=== PATIENT | female | born 1980 | race Hispanic/Latino ===

== ENCOUNTER 2017-06-26 13:21 | Emergency (ER) | payer MEDICARE ==
[~2017-06-26 13:21] MED LIST: ALBUTEROL IH; HYDR-4068 PO; TRAM50TA4 PO
== END 2017-06-26 14:51 | disposition home or self-care (01) ==
LOC: EDH 13:21
DX: M79.661 Pain in right lower leg (principal); M79.1 Myalgia; J45.909 Unspecified asthma, uncomplicated; G89.29 Other chronic pain; M54.5 Low back pain; Z88.1 Allergy status to other antibiotic agents; Z72.0 Tobacco use
CPT/HCPCS: 93971

== ENCOUNTER 2018-02-06 15:42 | Emergency (ER) | payer MEDICARE ==
[2018-02-06 17:11] LABS: BASOPHILS % (AUTO) 0.4 % (0.0-5.0); EOSINOPHILS % (AUTO) 1.6 % (0.0-8.0); HEMATOCRIT 34.3 % (36-48); LYMPHOCYTES % (AUTO) 29.1 % (21.0-51.0); MEAN CORPUSCULAR HEMOGLOBIN 33.3 pg (27.0-33.0); MEAN CORPUSCULAR HGB CONC 33.9 g/dL (32.0-36.0); MEAN CORPUSCULAR VOLUME 98.2 fL (79-99); MONOCYTES % (AUTO) 8.5 % (3.0-13.0); NEUTROPHILS % (AUTO) 60.4 % (40.0-77.0); PLATELET COUNT (AUTO) 114 K/uL (130-400); RED BLOOD CELL COUNT(AUTO) 3.49 MIL/uL (4.00-5.50); WHITE BLOOD COUNT (AUTO) 5.2 K/uL (4.8-10.8)
[2018-02-06 17:18] LABS: CREATININE 0.6 mg/dL (0.5-1.5); POTASSIUM 3.9 mmol/L (3.5-5.1)
== END 2018-02-06 17:40 | disposition home or self-care (01) ==
LOC: EDH 15:42
DX: R53.83 Other fatigue (principal); R11.0 Nausea; K08.89 Other specified disorders of teeth and supporting structures; J45.909 Unspecified asthma, uncomplicated; G89.29 Other chronic pain; Z87.891 Personal history of nicotine dependence; Z88.1 Allergy status to other antibiotic agents; Z88.5 Allergy status to narcotic agent
CPT/HCPCS: 36415; 80048; 85025

== ENCOUNTER 2018-03-04 21:11 | Emergency (ER) | payer MEDICARE ==
[2018-03-04] MEDS ORDERED: METOCLOPRAMIDE 10 MG TABLET ONE (21:48)
[2018-03-04] MEDS ORDERED: ACETAMINOPHEN EXTRA STRENGTH 500 MG TABLET ONE (21:48)
[2018-03-04 22:01] LABS: RAPID GROUP A STREP NEGATIVE (NEGATIVE)
== END 2018-03-04 22:52 | disposition home or self-care (01) ==
LOC: EDH 21:11
DX: J06.9 Acute upper respiratory infection, unspecified (principal); J45.909 Unspecified asthma, uncomplicated; Z98.51 Tubal ligation status; Z72.0 Tobacco use; Z88.1 Allergy status to other antibiotic agents; Z88.6 Allergy status to analgesic agent
CPT/HCPCS: 87804; 87880

== ENCOUNTER 2019-01-06 14:24 | Emergency (ER) | payer OTHER, MEDICARE ==
[2019-01-06] MEDS ORDERED: SODIUM CHLORIDE 0.9% 1000ML 1,000 ML IV ONE (15:40)
[2019-01-06] MEDS ORDERED: METOCLOPRAMIDE 10 MG/2 ML VIAL ONE (15:40)
[2019-01-06 15:44] LABS: BASOPHILS % (AUTO) 0.3 % (0.0-5.0); EOSINOPHILS % (AUTO) 0.3 % (0.0-8.0); LYMPHOCYTES % (AUTO) 20.8 % (21.0-51.0); MEAN CORPUSCULAR HEMOGLOBIN 33.8 pg (27.0-33.0); MEAN CORPUSCULAR HGB CONC 34.6 g/dL (32.0-36.0); MEAN CORPUSCULAR VOLUME 97.6 fL (79-99); MONOCYTES % (AUTO) 6.3 % (3.0-13.0); NEUTROPHILS % (AUTO) 72.3 % (40.0-77.0); PLATELET COUNT (AUTO) 140 K/uL (130-400); RED CELL DISTRIBUTION WIDTH 12.4 % (11.0-15.5); WHITE BLOOD COUNT (AUTO) 7.7 K/uL (4.8-10.8)
[2019-01-06 15:51] LABS: APPEARANCE,URINE Clear (CLEAR); BILIRUBIN,URINE Negative (NEGATIVE); COLOR,URINE Yellow (YELLOW); GLUCOSE, URINE (UA) Negative (NEGATIVE); KETONES,URINE Negative (NEGATIVE); LEUKOCYTE ESTERASE ,URINE Negative (NEGATIVE); NITRATE,URINE Negative (NEGATIVE); OCCULT BLOOD,URINE Negative (NEGATIVE); PROTEIN,URINE Negative (NEGATIVE); UROBILINOGEN,URINE 0.2 mg/dL (0.2-1.0)
[2019-01-06 15:54] LABS: HCG,QUAL RESULT NEGATIVE (NEGATIVE)
[2019-01-06 15:59] LABS: CREATININE 0.7 mg/dL (0.5-1.5); POTASSIUM 4.1 mmol/L (3.5-5.1)
[2019-01-06 16:00] LABS: AMPHET/METH SCREEN,URINE NEGATIVE (NEGATIVE); BARBITURATE SCREEN, URINE NEGATIVE (NEGATIVE); BENZODIAZEPINES SCREEN,URINE NEGATIVE (NEGATIVE); CANNABINOID SCREEN,URINE NEGATIVE (NEGATIVE); COCAINE SCREEN,URINE POSITIVE (NEGATIVE); OPIATE SCREEN,URINE NEGATIVE (NEGATIVE); PHENCYCLIDINE SCREEN,URINE NEGATIVE (NEGATIVE)
[2019-01-06 16:03] LABS: ALBUMIN 4.2 g/dL (3.5-5.0); BILIRUBIN,TOTAL 1.9 mg/dL (0.2-1.0); TOTAL PROTEIN, SERUM 7.8 g/dL (6.0-8.3)
== END 2019-01-06 16:30 | disposition left against medical advice (07) ==
LOC: EDH 14:24
DX: R10.30 Lower abdominal pain, unspecified (principal); R11.2 Nausea with vomiting, unspecified; G44.209 Tension-type headache, unspecified, not intractable; F14.10 Cocaine abuse, uncomplicated; J45.909 Unspecified asthma, uncomplicated; Z88.1 Allergy status to other antibiotic agents; Z88.5 Allergy status to narcotic agent; Z98.51 Tubal ligation status
CPT/HCPCS: 36415; 80053; 80305; 81003; 81025; 83690; 85025; 96374; 99284; J2765; J7030

== ENCOUNTER 2019-12-27 12:07 | Emergency (ER) | payer OTHER, MEDICARE ==
[2019-12-27] MEDS ORDERED: ONDANSETRON HCL 4 MG/2 ML VIAL ONE ×2 (12:37→12:50)
[2019-12-27] MEDS ORDERED: SODIUM CHLORIDE 0.9% 1000ML 1,000 ML IV ONE (12:51)
[2019-12-27] MEDS ORDERED: ACETAMINOPHEN EXTRA STRENGTH 500 MG TABLET ONE (12:51)
[2019-12-27 13:03] LABS: BASOPHILS % (AUTO) 0.4 % (0.0-5.0); EOSINOPHILS % (AUTO) 1.8 % (0.0-8.0); HEMATOCRIT 43.9 % (36-48); LYMPHOCYTES % (AUTO) 23.3 % (21.0-51.0); MEAN CORPUSCULAR HEMOGLOBIN 31.2 pg (27.0-33.0); MEAN CORPUSCULAR HGB CONC 34.4 g/dL (32.0-36.0); MEAN CORPUSCULAR VOLUME 90.7 fL (79-99); MONOCYTES % (AUTO) 7.2 % (3.0-13.0); NEUTROPHILS % (AUTO) 67.1 % (40.0-77.0); PLATELET COUNT (AUTO) 156 K/uL (130-400); RED BLOOD CELL COUNT(AUTO) 4.84 MIL/uL (4.00-5.50); RED CELL DISTRIBUTION WIDTH 12.2 % (11.0-15.5)
[2019-12-27 13:13] LABS: CREATININE 0.9 mg/dL (0.5-1.5); POTASSIUM 3.8 mmol/L (3.5-5.1)
[2019-12-27 13:17] LABS: ALBUMIN 4.2 g/dL (3.5-5.0); BILIRUBIN,TOTAL 1.7 mg/dL (0.2-1.0); TOTAL PROTEIN, SERUM 8.2 g/dL (6.0-8.3)
[2019-12-27 13:20] LABS: RAPID GROUP A STREP POSITIVE (NEGATIVE)
[2019-12-27 13:27] LABS: APPEARANCE,URINE Clear (CLEAR); BILIRUBIN,URINE Negative (NEGATIVE); COLOR,URINE Yellow (YELLOW); GLUCOSE, URINE (UA) Negative (NEGATIVE); KETONES,URINE Negative (NEGATIVE); LEUKOCYTE ESTERASE ,URINE Negative (NEGATIVE); NITRATE,URINE Negative (NEGATIVE); OCCULT BLOOD,URINE Negative (NEGATIVE); PROTEIN,URINE Negative (NEGATIVE); UROBILINOGEN,URINE 0.2 mg/dL (0.2-1.0)
[2019-12-27] MEDS ORDERED: CEFTRIAXONE SODIUM 1 GM ONE (13:37)
[2019-12-27] MEDS ORDERED: SODIUM CHLORIDE 0.9% 50 ML IV ONE (13:37)
== END 2019-12-27 14:26 | disposition home or self-care (01) ==
LOC: EDH 12:07
DX: J02.0 Streptococcal pharyngitis (principal); R11.2 Nausea with vomiting, unspecified; Z20.828 Contact with and (suspected) exposure to other viral communicable diseases; J45.909 Unspecified asthma, uncomplicated; M79.7 Fibromyalgia; G89.29 Other chronic pain; M54.9 Dorsalgia, unspecified; Z88.1 Allergy status to other antibiotic agents; Z88.6 Allergy status to analgesic agent; Z98.51 Tubal ligation status; Z87.891 Personal history of nicotine dependence
CPT/HCPCS: 36415; 80053; 81003; 85025; 87426; 87804 ×2; 87880; 96361; 96374; 96375; 99284; J0696; J2405 ×2; J7030; U0003

== ENCOUNTER 2020-02-13 10:07 | Emergency (ER) | payer OTHER, MEDICARE ==
[2020-02-13] MEDS ORDERED: KETOROLAC TROMETHAMINE 30MG/ML ONE (10:50)
[2020-02-13 11:17] LABS: BASOPHILS % (AUTO) 0.3 % (0.0-5.0); EOSINOPHILS % (AUTO) 0.6 % (0.0-8.0); HEMATOCRIT 43.7 % (36-48); LYMPHOCYTES % (AUTO) 10.2 % (21.0-51.0); MEAN CORPUSCULAR HEMOGLOBIN 31.3 pg (27.0-33.0); MEAN CORPUSCULAR HGB CONC 33.9 g/dL (32.0-36.0); MEAN CORPUSCULAR VOLUME 92.4 fL (79-99); MONOCYTES % (AUTO) 5.3 % (3.0-13.0); NEUTROPHILS % (AUTO) 83.3 % (40.0-77.0); PLATELET COUNT (AUTO) 144 K/uL (130-400); RED BLOOD CELL COUNT(AUTO) 4.73 MIL/uL (4.00-5.50); RED CELL DISTRIBUTION WIDTH 12.8 % (11.0-15.5); WHITE BLOOD COUNT (AUTO) 8.7 K/uL (4.8-10.8)
[2020-02-13 11:31] LABS: CREATININE 1.5 mg/dL (0.5-1.5); POTASSIUM 3.9 mmol/L (3.5-5.1)
[2020-02-13 11:35] LABS: ALBUMIN 4.4 g/dL (3.5-5.0); BILIRUBIN,TOTAL 1.3 mg/dL (0.2-1.0); TOTAL PROTEIN, SERUM 8.5 g/dL (6.0-8.3)
[2020-02-13] MEDS ORDERED: PENICILLIN G BENZATHINE LA 1.2 MILUNITS/2 ML SYG ONE (11:47)
== END 2020-02-13 12:14 | disposition home or self-care (01) ==
LOC: EDH 10:07
DX: J02.0 Streptococcal pharyngitis (principal); Z20.828 Contact with and (suspected) exposure to other viral communicable diseases; J45.909 Unspecified asthma, uncomplicated; G89.29 Other chronic pain; M79.7 Fibromyalgia; Z88.1 Allergy status to other antibiotic agents; Z88.6 Allergy status to analgesic agent; Z87.891 Personal history of nicotine dependence; Z98.890 Other specified postprocedural states
CPT/HCPCS: 36415; 80053; 85025; 87426; 87880; 96372; 96374; 99284; J0561; J1885; U0003

== ENCOUNTER 2021-07-07 15:29 | Emergency (ER) | payer OTHER, MEDICARE ==
[~2021-07-07] VITALS: Ht 154.9 cm; Wt 49.9 kg
[2021-07-07 16:04] LABS: BASOPHILS % (AUTO) 0.2 % (0.0-5.0); EOSINOPHILS % (AUTO) 0.2 % (0.0-8.0); HEMATOCRIT 46.3 % (36-48); LYMPHOCYTES % (AUTO) 15.1 % (21.0-51.0); MEAN CORPUSCULAR HEMOGLOBIN 31.5 pg (27.0-33.0); MEAN CORPUSCULAR HGB CONC 33.9 g/dL (32.0-36.0); MONOCYTES % (AUTO) 7.2 % (3.0-13.0); NEUTROPHILS % (AUTO) 76.8 % (40.0-77.0); PLATELET COUNT (AUTO) 178 K/uL (130-400); RED BLOOD CELL COUNT(AUTO) 4.98 MIL/uL (4.00-5.50); RED CELL DISTRIBUTION WIDTH 14.2 % (11.0-15.5); WHITE BLOOD COUNT (AUTO) 10.6 K/uL (4.8-10.8)
[2021-07-07 16:14] LABS: CARBON DIOXIDE 25 mmol/L (21-32); CHLORIDE 99 mmol/L (101-111); CREATININE 0.8 mg/dL (0.5-1.5); GLOMERULAR FILTR. RATE CALC 85 mL/min (>60); GLUCOSE,RANDOM 95 mg/dL (70-105); POTASSIUM 3.6 mmol/L (3.5-5.1); SODIUM SERUM 139 mmol/L (136-145); UREA NITROGEN, BLOOD 9 mg/dL (7-18)
[2021-07-07 16:19] LABS: ALANINE AMINOTRANSFERASE 21 U/L (12-78); ALBUMIN 4.9 g/dL (3.5-5.0); ASPARTATE AMINOTRANSFERASE 20 U/L (10-37); BILIRUBIN,TOTAL 2.1 mg/dL (0.2-1.0); LIPASE < 50 U/L (114-286); TOTAL PROTEIN, SERUM 8.9 g/dL (6.0-8.3)
[2021-07-07 17:08] LABS: BILIRUBIN,URINE Negative (NEGATIVE); COLOR,URINE Dark Yellow (YELLOW); GLUCOSE, URINE (UA) Negative (NEGATIVE); KETONES,URINE >=160 mg/dL (NEGATIVE); LEUKOCYTE ESTERASE ,URINE Small (NEGATIVE); NITRATE,URINE Positive (NEGATIVE); OCCULT BLOOD,URINE Trace (NEGATIVE); PH,URINE 6.5 (5.0-8.0); PROTEIN,URINE POS 2+ mg/dL (NEGATIVE)
[2021-07-07 17:11] LABS: APPEARANCE,URINE CLOUDY (CLEAR)
[2021-07-07 17:13] LABS: HCG,QUAL RESULT NEGATIVE (NEGATIVE)
[2021-07-07 17:14] LABS: AMPHET/METH SCREEN,URINE POSITIVE (NEGATIVE); BARBITURATE SCREEN, URINE NEGATIVE (NEGATIVE); BENZODIAZEPINES SCREEN,URINE NEGATIVE (NEGATIVE); CANNABINOID SCREEN,URINE POSITIVE (NEGATIVE); COCAINE SCREEN,URINE NEGATIVE (NEGATIVE); OPIATE SCREEN,URINE NEGATIVE (NEGATIVE); PHENCYCLIDINE SCREEN,URINE NEGATIVE (NEGATIVE)
[2021-07-07 17:30] LABS: BACTERIA,URINE Moderate /HPF (None Seen); SQUAMOUS EPITHELIAL CELL,UR Moderate /HPF (0-2)
[2021-07-07] MEDS ORDERED: LACTATED RINGERS 1000ML 1,000 ML IV ONE (19:30)
[2021-07-07] MEDS ORDERED: LORAZEPAM 2 MG/ML 1 ML VIAL IVP ONE (19:30)
[2021-07-07] MEDS ORDERED: ONDANSETRON 4MG INJ IVP ONE (21:30)
[2021-07-07] MEDS ORDERED: IBUPROFEN 600 MG TABLET PO ONE (21:30)
[2021-07-07] MEDS ORDERED: CLON0.1T PO (22:20)
[2021-07-07] MEDS ORDERED: ONDA22I PO (22:20)
[2021-07-07 22:26] VITALS: BP 135/85
== END 2021-07-07 22:35 | disposition home or self-care (01) ==
LOC: EDH 15:29
DX: F11.13 Opioid abuse with withdrawal (principal); F19.10 Other psychoactive substance abuse, uncomplicated; R11.2 Nausea with vomiting, unspecified; R19.7 Diarrhea, unspecified; J45.909 Unspecified asthma, uncomplicated; Z79.1 Long term (current) use of non-steroidal anti-inflammatories (NSAID); Z88.1 Allergy status to other antibiotic agents; Z88.2 Allergy status to sulfonamides; Z88.5 Allergy status to narcotic agent
CPT/HCPCS: 36415; 80053; 80305; 81001; 81025; 83690; 85025; 87077; 87088; 87186; 96361; 96374; 96375; 99284; J2060; J2405; J7120

== ENCOUNTER 2022-01-16 07:31 | Emergency (ER) | payer OTHER, MEDICARE ==
[~2022-01-16 07:31] MED LIST changes: +CLON0.1T PO; +ONDA22I PO
[2022-01-16 07:53] LABS: BASOPHILS % (AUTO) 0.2 % (0.0-5.0); EOSINOPHILS % (AUTO) 0.5 % (0.0-8.0); HEMATOCRIT 42.7 % (36-48); MEAN CORPUSCULAR HEMOGLOBIN 31.5 pg (27.0-33.0); MEAN CORPUSCULAR HGB CONC 34.4 g/dL (32.0-36.0); MEAN CORPUSCULAR VOLUME 91.6 fL (79-99); MONOCYTES % (AUTO) 2.2 % (3.0-13.0); NEUTROPHILS % (AUTO) 90.5 % (40.0-77.0); PLATELET COUNT (AUTO) 143 K/uL (130-400); RED BLOOD CELL COUNT(AUTO) 4.66 MIL/uL (4.00-5.50); RED CELL DISTRIBUTION WIDTH 13.2 % (11.0-15.5); WHITE BLOOD COUNT (AUTO) 10.7 K/uL (4.8-10.8)
[2022-01-16 08:07] LABS: CREATININE 0.7 mg/dL (0.5-1.5); POTASSIUM 3.3 mmol/L (3.5-5.1)
[2022-01-16 08:11] LABS: ALBUMIN 4.4 g/dL (3.5-5.0)
[2022-01-16] MEDS ORDERED: POTASSIUM BICARB/CIT AC 25 MEQ TABLET.EFF PO STA (08:23)
[2022-01-16] MEDS ORDERED: 0.9%NACL 1000ML 1,000 ML IV ONE (08:30)
[2022-01-16 08:34] LABS: AMPHET/METH SCREEN,URINE NEGATIVE (NEGATIVE); BARBITURATE SCREEN, URINE NEGATIVE (NEGATIVE); BENZODIAZEPINES SCREEN,URINE NEGATIVE (NEGATIVE); CANNABINOID SCREEN,URINE POSITIVE (NEGATIVE); COCAINE SCREEN,URINE NEGATIVE (NEGATIVE); OPIATE SCREEN,URINE NEGATIVE (NEGATIVE); PHENCYCLIDINE SCREEN,URINE NEGATIVE (NEGATIVE)
[2022-01-16 08:45] LABS: APPEARANCE,URINE CLEAR (CLEAR); BILIRUBIN,URINE NEGATIVE (NEGATIVE); COLOR,URINE YELLOW (YELLOW); GLUCOSE, URINE (UA) NEGATIVE (NEGATIVE); KETONES,URINE 60 mg/dL (NEGATIVE); LEUKOCYTE ESTERASE ,URINE 25 Leu/uL (NEGATIVE); NITRATE,URINE NEGATIVE (NEGATIVE); OCCULT BLOOD,URINE NEGATIVE (NEGATIVE); PROTEIN,URINE 10 mg/dL (NEGATIVE); UROBILINOGEN,URINE 0.2 mg/dL (0.2-1.0)
[2022-01-16 08:46] LABS: HCG,QUALITATIVE URINE NEGATIVE (NEGATIVE)
[2022-01-16 08:47] LABS: MUCUS,URINE RARE LPF (None Seen); SQUAMOUS EPITHELIAL CELL,UR RARE /HPF (0-2)
[2022-01-16] MEDS ORDERED: KETOROLAC 15MG/ML VIAL (15MG/ML) IV ONE (09:00)
[2022-01-16 09:11] VITALS: BP 107/50
[2022-01-16] MEDS ORDERED: CEPH500B PO (09:23)
== END 2022-01-16 09:31 | disposition home or self-care (01) ==
LOC: EDH 07:31
DX: N39.0 Urinary tract infection, site not specified (principal); F12.10 Cannabis abuse, uncomplicated; R41.0 Disorientation, unspecified; E87.6 Hypokalemia; Z98.890 Other specified postprocedural states; Z88.1 Allergy status to other antibiotic agents; Z88.2 Allergy status to sulfonamides; Z88.5 Allergy status to narcotic agent
CPT/HCPCS: 80053; 80305; 83690; 85025; 81001; 81025; 36415; 96374; 99283; 96361; J7030; J1885

== ENCOUNTER 2022-02-12 05:09 | Emergency (ER) | payer OTHER, MEDICARE ==
[~2022-02-12] VITALS: Ht 154.9 cm; Wt 42.8 kg
[~2022-02-12 05:09] MED LIST changes: +CEPH500B PO
[2022-02-12] MEDS ORDERED: ONDANSETRON ODT 4MG TAB ONE (05:40)
[2022-02-12] MEDS ORDERED: 0.9%NACL 1000ML 1,000 ML IV ONE (05:50)
[2022-02-12 06:06] LABS: BASOPHILS % (AUTO) 0.2 % (0.0-5.0); EOSINOPHILS % (AUTO) 0.1 % (0.0-8.0); LYMPHOCYTES % (AUTO) 11.8 % (21.0-51.0); MEAN CORPUSCULAR HEMOGLOBIN 31.8 pg (27.0-33.0); MEAN CORPUSCULAR HGB CONC 33.9 g/dL (32.0-36.0); MEAN CORPUSCULAR VOLUME 93.8 fL (79-99); NEUTROPHILS % (AUTO) 82.5 % (40.0-77.0); PLATELET COUNT (AUTO) 153 K/uL (130-400); RED BLOOD CELL COUNT(AUTO) 4.37 MIL/uL (4.00-5.50); RED CELL DISTRIBUTION WIDTH 13.6 % (11.0-15.5)
[2022-02-12 06:06] LABS: AMPHET/METH SCREEN,URINE NEGATIVE (NEGATIVE); BARBITURATE SCREEN, URINE NEGATIVE (NEGATIVE); BENZODIAZEPINES SCREEN,URINE NEGATIVE (NEGATIVE); CANNABINOID SCREEN,URINE POSITIVE (NEGATIVE); COCAINE SCREEN,URINE POSITIVE (NEGATIVE); OPIATE SCREEN,URINE NEGATIVE (NEGATIVE); PHENCYCLIDINE SCREEN,URINE NEGATIVE (NEGATIVE)
[2022-02-12 06:15] LABS: CARBON DIOXIDE 25 mmol/L (21-32); CHLORIDE 103 mmol/L (101-111); CREATININE 0.7 mg/dL (0.5-1.5); GLOMERULAR FILTR. RATE CALC 99 mL/min (>60); GLUCOSE,RANDOM 118 mg/dL (70-105); POTASSIUM 3.8 mmol/L (3.5-5.1); SODIUM SERUM 141 mmol/L (136-145); UREA NITROGEN, BLOOD 10 mg/dL (7-18)
[2022-02-12 06:20] LABS: ALANINE AMINOTRANSFERASE 23 U/L (12-78); ALBUMIN 4.6 g/dL (3.5-5.0); ALCOHOL, BLOOD < 3 mg/dL (0-10); ASPARTATE AMINOTRANSFERASE 24 U/L (10-37); TOTAL PROTEIN, SERUM 8.4 g/dL (6.0-8.3)
[2022-02-12 06:21] LABS: ACETAMINOPHEN < 1 mcg/mL (10-30); SALICYLATE < 2.8 mg/dL (2.8-20.0)
[2022-02-12] MEDS: CARBIDOPA-LEVODOPA 25-100 TAB PO SCH ×2 (06:24→08:23)
[2022-02-12] MEDS ORDERED: PRAM0.5T3 PO (07:24)
[2022-02-12 07:30] VITALS: BP 123/84
[2022-02-12 07:50] LABS: APPEARANCE,URINE CLEAR (CLEAR); BILIRUBIN,URINE NEGATIVE (NEGATIVE); COLOR,URINE LIGHT-YELLOW (YELLOW); GLUCOSE, URINE (UA) NEGATIVE (NEGATIVE); KETONES,URINE NEGATIVE (NEGATIVE); LEUKOCYTE ESTERASE ,URINE NEGATIVE Leu/uL (NEGATIVE); NITRATE,URINE NEGATIVE (NEGATIVE); OCCULT BLOOD,URINE MODERATE (NEGATIVE); PH,URINE 7.5 (5.0-8.0); PROTEIN,URINE NEGATIVE (NEGATIVE); UROBILINOGEN,URINE 0.2 mg/dL (0.2-1.0)
[2022-02-12 08:18] LABS: BACTERIA,URINE RARE /HPF (None Seen); MUCUS,URINE RARE LPF (None Seen); OTHER CASTS, URINE 2 /LPF (None Seen); SQUAMOUS EPITHELIAL CELL,UR MANY /HPF (0-2)
== END 2022-02-12 11:05 | disposition home or self-care (01) ==
LOC: EDH 05:09
DX: F12.10 Cannabis abuse, uncomplicated (principal); F14.10 Cocaine abuse, uncomplicated; G25.81 Restless legs syndrome; R11.2 Nausea with vomiting, unspecified; Z88.6 Allergy status to analgesic agent; Z88.5 Allergy status to narcotic agent; Z88.1 Allergy status to other antibiotic agents; Z88.8 Allergy status to other drugs, medicaments and biological substances; Z98.890 Other specified postprocedural states; Z79.899 Other long term (current) drug therapy
CPT/HCPCS: 82550; 80053; 80305; 85025; 81001; 36415; 99283; 96360; G0481; J7030; 96361; 96374

== ENCOUNTER 2022-04-18 08:57 | Emergency (ER) | payer OTHER, MEDICARE ==
[~2022-04-18] VITALS: Ht 154.9 cm; Wt 44.5 kg
[~2022-04-18 08:57] MED LIST changes: +PRAM0.5T3 PO
[2022-04-18 09:26] LABS: BASOPHILS % (AUTO) 0.3 % (0.0-5.0); EOSINOPHILS % (AUTO) 2.1 % (0.0-8.0); HEMATOCRIT 37.7 % (36-48); LYMPHOCYTES % (AUTO) 38.1 % (21.0-51.0); MEAN CORPUSCULAR HEMOGLOBIN 31.3 pg (27.0-33.0); MEAN CORPUSCULAR HGB CONC 33.4 g/dL (32.0-36.0); MEAN CORPUSCULAR VOLUME 93.8 fL (79-99); MONOCYTES % (AUTO) 8.6 % (3.0-13.0); NEUTROPHILS % (AUTO) 50.7 % (40.0-77.0); PLATELET COUNT (AUTO) 119 K/uL (130-400); RED BLOOD CELL COUNT(AUTO) 4.02 MIL/uL (4.00-5.50); RED CELL DISTRIBUTION WIDTH 13.2 % (11.0-15.5); WHITE BLOOD COUNT (AUTO) 6.2 K/uL (4.8-10.8)
[2022-04-18] MEDS ORDERED: FAMOTIDINE 20MG VIAL IV ONE (09:30)
[2022-04-18] MEDS ORDERED: MORPHINE 4 MG SYG IVP ONE (09:30)
[2022-04-18] MEDS ORDERED: 0.9%NACL 1000ML 1,000 ML IV ONE (09:30)
[2022-04-18] MEDS ORDERED: ONDANSETRON 4MG INJ IVP ONE (09:30)
[2022-04-18] MEDS ORDERED: KETOROLAC 15MG/ML VIAL (15MG/ML) IV ONE (09:30)
[2022-04-18 09:34] LABS: CREATININE 0.6 mg/dL (0.5-1.5); POTASSIUM 3.6 mmol/L (3.5-5.1)
[2022-04-18 09:39] LABS: ALBUMIN 3.9 g/dL (3.5-5.0); TOTAL PROTEIN, SERUM 6.9 g/dL (6.0-8.3)
[2022-04-18 09:57] LABS: APPEARANCE,URINE CLOUDY (CLEAR); BILIRUBIN,URINE NEGATIVE (NEGATIVE); COLOR,URINE LIGHT-YELLOW (YELLOW); GLUCOSE, URINE (UA) NEGATIVE (NEGATIVE); KETONES,URINE NEGATIVE (NEGATIVE); LEUKOCYTE ESTERASE ,URINE 500 Leu/uL (NEGATIVE); NITRATE,URINE NEGATIVE (NEGATIVE); OCCULT BLOOD,URINE NEGATIVE (NEGATIVE); PROTEIN,URINE NEGATIVE (NEGATIVE)
[2022-04-18 10:16] LABS: BACTERIA,URINE FEW /HPF (None Seen); MUCUS,URINE RARE LPF (None Seen); SQUAMOUS EPITHELIAL CELL,UR MANY /HPF (0-2); WBC,URINE 26-50 /HPF (0-1)
[2022-04-18 10:21] LABS: HCG,QUALITATIVE URINE NEGATIVE (NEGATIVE)
[2022-04-18 10:57] VITALS: BP 120/75
[2022-04-18] MEDS ORDERED: POLY17PO4 PO (11:42)
[2022-04-18] MEDS ORDERED: CEPH500B PO (11:42)
[2022-04-18] MEDS ORDERED: NAPR-1023 PO (11:42)
== END 2022-04-18 11:46 | disposition home or self-care (01) ==
LOC: EDH 08:57
DX: N39.0 Urinary tract infection, site not specified (principal); K59.00 Constipation, unspecified; J45.909 Unspecified asthma, uncomplicated; E86.0 Dehydration; Z79.1 Long term (current) use of non-steroidal anti-inflammatories (NSAID); Z88.1 Allergy status to other antibiotic agents; Z88.2 Allergy status to sulfonamides; Z88.5 Allergy status to narcotic agent
CPT/HCPCS: 99285; 80053; 85025; 87088; 81001; 81025; 36415; 74176; 96374; 96361; 96375; J3490; J7030; J2405; J2270; J1885

== ENCOUNTER 2022-09-12 13:42 | Emergency (ER) | payer OTHER, MEDICARE ==
[~2022-09-12] VITALS: Ht 154.9 cm; Wt 45.4 kg
[~2022-09-12 13:42] MED LIST changes: +NAPR-1023 PO; +POLY17PO4 PO
[2022-09-12 13:43] VITALS: BP 114/71; PULSE 70; RESP 20
[2022-09-12 14:49] LABS: HEMATOCRIT 40.5 % (36-48); MEAN CORPUSCULAR HEMOGLOBIN 31.2 pg (27.0-33.0); MEAN CORPUSCULAR HGB CONC 33.3 g/dL (32.0-36.0); MEAN CORPUSCULAR VOLUME 93.5 fL (79-99); PLATELET COUNT (AUTO) 144 K/uL (130-400); RED BLOOD CELL COUNT(AUTO) 4.33 MIL/uL (4.00-5.50); RED CELL DISTRIBUTION WIDTH 13.2 % (11.0-15.5); WHITE BLOOD COUNT (AUTO) 8.9 K/uL (4.8-10.8)
[2022-09-12 14:51] LABS: APPEARANCE,URINE CLOUDY (CLEAR); BILIRUBIN,URINE NEGATIVE (NEGATIVE); COLOR,URINE LIGHT-YELLOW (YELLOW); GLUCOSE, URINE (UA) NEGATIVE (NEGATIVE); KETONES,URINE NEGATIVE (NEGATIVE); LEUKOCYTE ESTERASE ,URINE 75 Leu/uL (NEGATIVE); NITRATE,URINE NEGATIVE (NEGATIVE); OCCULT BLOOD,URINE LARGE (NEGATIVE); PROTEIN,URINE 10 mg/dL (NEGATIVE); UROBILINOGEN,URINE 0.2 mg/dL (0.2-1.0)
[2022-09-12] MEDS ORDERED: 0.9%NACL 1000ML 1,000 ML IV ONE (15:00)
[2022-09-12] MEDS ORDERED: ONDANSETRON 4MG INJ IVP ONE (15:00)
[2022-09-12] MEDS ORDERED: KETOROLAC 30MG VIAL (30MG/ML) IVP ONE (15:00)
[2022-09-12 15:03] LABS: CREATININE 0.7 mg/dL (0.5-1.5); POTASSIUM 3.9 mmol/L (3.5-5.1)
[2022-09-12 15:07] LABS: HCG,QUALITATIVE URINE NEGATIVE (NEGATIVE)
[2022-09-12 15:07] LABS: ALBUMIN 4.2 g/dL (3.5-5.0); TOTAL PROTEIN, SERUM 7.9 g/dL (6.0-8.3)
[2022-09-12 15:25] LABS: ADD UA MICROSCOPIC YES
[2022-09-12 15:28] LABS: BACTERIA,URINE MOD /HPF (None Seen); MUCUS,URINE FEW LPF (None Seen); SQUAMOUS EPITHELIAL CELL,UR MANY /HPF (0-2)
[2022-09-12 15:46] LABS: LYMPHOCYTES % (MANUAL) 25 % (22-44); MONOCYTES % (MANUAL) 2 % (2-9); SEGMENTED NEUTROPHILS % 73 % (40-70); TOTAL CELLS COUNTED 100
[2022-09-12 15:48] LABS: MAN.DIFF COMMENT-IMPRESSION MANUAL DIFFERENTIAL
[2022-09-12 15:49] LABS: PLATELET MORPHOLOGY COMMENT ADEQUATE
[2022-09-12] MEDS ORDERED: ONDA4TAB10 PO (16:23)
[2022-09-12] MEDS ORDERED: CEFD300C3 PO (16:23)
[2022-09-12] MEDS ORDERED: IBUP-2070 PO (16:23)
[2022-09-12] MEDS ORDERED: CEFTRIAXONE 1G VIAL IVPB ONE (16:30)
== END 2022-09-12 16:58 | disposition home or self-care (01) ==
LOC: EDH 13:42
DX: N39.0 Urinary tract infection, site not specified (principal); N93.8 Other specified abnormal uterine and vaginal bleeding; R10.2 Pelvic and perineal pain; J45.909 Unspecified asthma, uncomplicated; Z88.1 Allergy status to other antibiotic agents; Z88.2 Allergy status to sulfonamides; Z88.5 Allergy status to narcotic agent
CPT/HCPCS: 99285; 80053; 84702; 85025; 87088; 81001; 81025; 36415; 76830; 96374; 96361; 96375; J7030; J0696; J2405; J1885

== ENCOUNTER 2022-10-11 01:35 | Emergency (ER) | payer OTHER, MEDICARE ==
[~2022-10-11] VITALS: Ht 154.9 cm; Wt 46.7 kg
[~2022-10-11 01:35] MED LIST changes: +CEFD300C3 PO; +IBUP-2070 PO; +ONDA4TAB10 PO
[2022-10-11 01:36] VITALS: BP 137/79; PULSE 69; RESP 20
[2022-10-11] MEDS ORDERED: AMOX500C2 PO (02:06)
[2022-10-11] MEDS ORDERED: ONDA-104 PO (02:06)
== END 2022-10-11 02:46 | disposition left against medical advice (07) ==
LOC: EDH 01:35
DX: K08.89 Other specified disorders of teeth and supporting structures (principal); Z88.1 Allergy status to other antibiotic agents; Z88.2 Allergy status to sulfonamides; Z88.5 Allergy status to narcotic agent

== ENCOUNTER 2023-04-08 10:50 | Emergency (ER) | payer OTHER, MEDICARE ==
[~2023-04-08] VITALS: Ht 154.9 cm; Wt 42.6 kg
[~2023-04-08 10:50] MED LIST changes: +AMOX500C2 PO; +ONDA-104 PO
[2023-04-08] MEDS ORDERED: OMEP40CA21 PO (12:40)
[2023-04-08] MEDS ORDERED: IBUP-2077 PO (12:40)
[2023-04-08] MEDS ORDERED: METH4TAB3 PO (12:40)
[2023-04-08] MEDS: DEXAMETHASONE SOD PHOSPHATE 4 MG/ML 1ML VIAL IM ONE (12:53)
[2023-04-08] MEDS: KETOROLAC 60 MG VIAL (30MG/ML) IM ONE (12:54)
[2023-04-08 13:47] VITALS: BP 135/80; PULSE 74; RESP 18; O2SAT 97
== END 2023-04-08 13:48 | disposition home or self-care (01) ==
LOC: EDH 10:50
DX: E04.9 Nontoxic goiter, unspecified (principal); J45.909 Unspecified asthma, uncomplicated; Z79.899 Other long term (current) drug therapy; Z98.890 Other specified postprocedural states; Z90.710 Acquired absence of both cervix and uterus; Z88.1 Allergy status to other antibiotic agents; Z88.2 Allergy status to sulfonamides; Z88.5 Allergy status to narcotic agent; Z88.8 Allergy status to other drugs, medicaments and biological substances
CPT/HCPCS: 99284; 96372 ×2; J1100; J1885

== ENCOUNTER 2023-04-09 17:12 | Emergency (ER) | payer OTHER, MEDICARE ==
[~2023-04-09] VITALS: Ht 154.9 cm; Wt 43.5 kg
[~2023-04-09 17:12] MED LIST changes: +IBUP-2077 PO; +METH4TAB3 PO; +OMEP40CA21 PO
[2023-04-09 17:26] VITALS: BP 123/89; PULSE 63; RESP 16
[2023-04-09] MEDS ORDERED: IBUPROFEN 600 MG TABLET PO ONE (19:00)
[2023-04-09] MEDS ORDERED: LIDOCAINE HCL 1% 20 ML VIAL INJ SCH (19:00)
[2023-04-09] MEDS ORDERED: NEOMY SULF/BACITRA/POLYMYXIN B 1 EACH PACKET TP ONE (19:00)
[2023-04-09] MEDS ORDERED: TETANUS/DIPHTHERIA TOXOID [ADULT] 0.5 ML VIAL IM ONE (19:00)
== END 2023-04-10 02:05 | disposition left against medical advice (07) ==
LOC: EDH 17:12
DX: S01.01XA Laceration without foreign body of scalp, initial encounter (principal); J45.909 Unspecified asthma, uncomplicated; G89.29 Other chronic pain; Z88.2 Allergy status to sulfonamides; Z88.5 Allergy status to narcotic agent; Z88.8 Allergy status to other drugs, medicaments and biological substances; Z90.710 Acquired absence of both cervix and uterus; W01.0XXA Fall on same level from slipping, tripping and stumbling without subsequent striking against object, initial encounter; Y93.89 Activity, other specified; Y92.89 Other specified places as the place of occurrence of the external cause; Y99.8 Other external cause status

== ENCOUNTER 2023-06-15 15:54 | Emergency (ER) | payer OTHER, MEDICARE ==
[~2023-06-15] VITALS: Ht 154.9 cm; Wt 42.2 kg
[2023-06-15 18:30] VITALS: TEMP 97.9
[2023-06-15] MEDS: IBUPROFEN 800 MG TAB PO ONE (18:30)
[2023-06-15] MEDS ORDERED: IBUP-2070 PO (19:40)
[2023-06-15 19:45] VITALS: BP 121/68; PULSE 72; RESP 18; O2SAT 99
== END 2023-06-15 19:50 | disposition home or self-care (01) ==
LOC: EDH 15:54
DX: S60.221A Contusion of right hand, initial encounter (principal); S60.511A Abrasion of right hand, initial encounter; J45.909 Unspecified asthma, uncomplicated; Z79.899 Other long term (current) drug therapy; Z88.1 Allergy status to other antibiotic agents; Z88.2 Allergy status to sulfonamides; Z88.5 Allergy status to narcotic agent; Z90.710 Acquired absence of both cervix and uterus; W18.39XA Other fall on same level, initial encounter; Y93.89 Activity, other specified; Y92.89 Other specified places as the place of occurrence of the external cause; Y99.8 Other external cause status
CPT/HCPCS: 73130

== ENCOUNTER → 2023-07-13 | Outpatient (CLI) | payer OTHER | END | disposition home or self-care (01) | LOC: OIH 11:42 | PROVIDERS: ATTEND Family Medicine | DX: Z13.6 Encounter for screening for cardiovascular disorders (principal) | CPT/HCPCS: 75571 ==

== ENCOUNTER → 2023-07-18 | Outpatient (CLI) | payer OTHER, MEDICARE ==
[~2023-07-18] MED LIST changes: +GADOTERATE MEGLUMINE 5 MMOL/10 ML VIAL IV ONE
== END | disposition home or self-care (01) ==
LOC: RAH 13:03
PROVIDERS: ATTEND Optometrist Corneal and Contact Management
DX: H53.133 Sudden visual loss, bilateral (principal)
CPT/HCPCS: 70553; A9575

== ENCOUNTER 2023-11-27 06:11 | Emergency (ER) | payer OTHER, MEDICARE ==
[~2023-11-27 06:11] MED LIST changes: -GADOTERATE MEGLUMINE 5 MMOL/10 ML VIAL IV ONE; +ONDA-243 PO; -ONDA4TAB10 PO
[2023-11-27] MEDS: 0.9%NACL 1000ML 1,000 ML IV ONE (06:33)
[2023-11-27 06:37] LABS: BASOPHILS # (AUTO) 0.02 K/uL (0.00-0.20); BASOPHILS % (AUTO) 0.3 % (0.0-5.0); EOSINOPHILS # (AUTO) 0.11 K/uL (0.00-0.70); EOSINOPHILS % (AUTO) 1.8 % (0.0-8.0); HEMATOCRIT 34.2 % (36-48); IMMATURE GRANULOCYTE ABSOLUTE 0.02 K/uL (0-1); LYMPHOCYTES # (AUTO) 1.5 K/uL (1.0-4.8); LYMPHOCYTES % (AUTO) 23.9 % (21.0-51.0); MEAN CORPUSCULAR HEMOGLOBIN 32.8 pg (27.0-33.0); MEAN CORPUSCULAR HGB CONC 34.2 g/dL (32.0-36.0); MEAN CORPUSCULAR VOLUME 95.8 fL (79-99); MONOCYTES # (AUTO) 0.5 K/uL (0.1-1.0); MONOCYTES % (AUTO) 8.1 % (3.0-13.0); NEUTROPHILS # (AUTO) 4.1 K/uL (1.8-7.7); NEUTROPHILS % (AUTO) 65.6 % (40.0-77.0); PLATELET COUNT (AUTO) 118 K/uL (130-400); RED BLOOD CELL COUNT(AUTO) 3.57 MIL/uL (4.00-5.50); RED CELL DISTRIBUTION WIDTH 12.7 % (11.0-15.5); WHITE BLOOD COUNT (AUTO) 6.2 K/uL (4.8-10.8)
[2023-11-27 06:58] LABS: CARBON DIOXIDE 27 mmol/L (21-32); CHLORIDE 100 mmol/L (101-111); CREATINE KINASE, TOTAL 67 U/L (21-232); CREATININE 0.7 mg/dL (0.5-1.0); GLOMERULAR FILTR. RATE CALC 111 mL/min (>90); GLUCOSE,RANDOM 113 mg/dL (70-105); POTASSIUM 3.1 mmol/L (3.5-5.1); SODIUM SERUM 135 mmol/L (136-145); UREA NITROGEN, BLOOD 16 mg/dL (7-18)
[2023-11-27 07:19] LABS: ACETAMINOPHEN 3 mcg/mL (10-30)
[2023-11-27 07:20] LABS: ALCOHOL, BLOOD < 3 mg/dL (0-10); SALICYLATE < 2.8 mg/dL (2.8-20.0)
[2023-11-27 08:00] LABS: APPEARANCE,URINE CLEAR (CLEAR); BILIRUBIN,URINE NEGATIVE (NEGATIVE); COLOR,URINE COLORLESS (YELLOW); GLUCOSE, URINE (UA) NEGATIVE (NEGATIVE); KETONES,URINE NEGATIVE (NEGATIVE); LEUKOCYTE ESTERASE ,URINE NEGATIVE Leu/uL (NEGATIVE); NITRATE,URINE NEGATIVE (NEGATIVE); OCCULT BLOOD,URINE NEGATIVE (NEGATIVE); PH,URINE 6.5 (5.0-8.0); PROTEIN,URINE NEGATIVE (NEGATIVE); UROBILINOGEN,URINE 0.2 mg/dL (0.2-1.0)
[2023-11-27 08:03] LABS: AMPHET/METH SCREEN,URINE NEGATIVE (NEGATIVE); BARBITURATE SCREEN, URINE NEGATIVE (NEGATIVE); BENZODIAZEPINES SCREEN,URINE NEGATIVE (NEGATIVE); CANNABINOID SCREEN,URINE POSITIVE (NEGATIVE); COCAINE SCREEN,URINE NEGATIVE (NEGATIVE); OPIATE SCREEN,URINE POSITIVE (NEGATIVE); PHENCYCLIDINE SCREEN,URINE NEGATIVE (NEGATIVE)
[2023-11-27 08:11] VITALS: BP 96/57; PULSE 59; RESP 18; TEMP 98.7; O2SAT 100
[2023-11-27 08:12] LABS: ADD UA MICROSCOPIC NO
== END 2023-11-27 09:13 | disposition home or self-care (01) ==
LOC: EDH 06:11
DX: K04.7 Periapical abscess without sinus (principal); G25.81 Restless legs syndrome; J45.909 Unspecified asthma, uncomplicated; Z79.899 Other long term (current) drug therapy; Z88.1 Allergy status to other antibiotic agents; Z88.2 Allergy status to sulfonamides; Z88.5 Allergy status to narcotic agent; Z88.8 Allergy status to other drugs, medicaments and biological substances; Z90.710 Acquired absence of both cervix and uterus; Z98.890 Other specified postprocedural states
CPT/HCPCS: 99285; 71045; 82550; 80048; 80305; 84703; 85025; 36415; 93005; 81003; G0481; J7030

== ENCOUNTER 2024-02-01 13:21 | Emergency (ER) | payer OTHER, MEDICARE ==
[~2024-02-01] VITALS: Ht 152.4 cm; Wt 39.9 kg
--- NOTE | 2024-02-01 13:30 | ERN ---
ED Note History of Present Illness Stated Complaint: COUGH CONGESTION X 5 DAYS Chief Complaint: Congestion Time Seen by MD: 13:23 Dictation: PATIENT IS A 43-YEAR-OLD FEMALE WHO IS A VAPE USER, COMING IN TODAY WITH COUGH CONGESTION RUNNY NOSE WITH MILD SHORTNESS A BREATH FOR FIVE DAYS. NO FEVER NO CHILLS NO LOSS OF TASTE OR SMELL NO NAUSEA VOMITING. [place] [facility] [place] DOCTOR [place] NOT BEEN IN ALL WEEK AND SHE DID NOT WANT TO SEE A NURSE PRACTITIONER. Allergies: Coded Allergies: acetaminophen (Unverified Allergy, Unknown, 12/27/19) codeine (Unverified Allergy, Unknown, 12/27/19) sulfamethoxazole (Verified Allergy, Unknown, 01/07/16) trimethoprim (Verified Allergy, Unknown, 01/07/16) vancomycin (Verified Allergy, Unknown, 01/07/16) Home Meds Active Scripts Benzonatate (Tessalon Perles) 100 Mg Cap, 100 MG PO TID for cough, #30 CAP 0 Refills Prov:DOUGLAS MONTIEL NP 02/01/24 Methylprednisolone (Medrol) 4 Mg Tab.ds.pk, 1 TAB PO AD for 6 Days, #21 TAB 0 Refills 6 on day 1 then reduce by one tablet daily until gone Prov:DOUGLAS MONTIEL NP 02/01/24 Albuterol Sulfate (Ventolin Hfa/Proventil Hfa/Proair Hfa) 90 Mcg Puff, 2 PUFF IH Q4H for WHEEZING, #1 INHALER 0 Refills Prov:DOUGLAS MONTIEL NP 02/01/24 Ibuprofen (Ibuprofen) 600 Mg Tablet, 600 MG PO Q6H PRN for PAIN, #30 TAB Prov:DOUGLAS MONTIEL NP 06/15/23 Omeprazole (Omeprazole) 40 Mg Capsule.dr, 40 MG PO DAILY, #30 CAP Prov:DOUGLAS MONTIEL DIETARY CLERK 04/08/23 Ibuprofen (Ibuprofen 800 mg Tab) 800 Mg Tab, 800 MG PO Q6H PRN for PAIN, #30 TAB Prov:DOUGLAS MONTIEL DIETARY CLERK 04/08/23 Methylprednisolone (Medrol) 4 Mg Tab.ds.pk, 4 MG PO AD, #1 UNIT Prov:DOUGLAS MONTIEL DIETARY CLERK 04/08/23 Ondansetron HCl (Ondansetron HCl) 4 Mg Tablet, 4 MG PO TIDP PRN for VOMITING, #20 TAB Prov:ALICE GUARDADO MD 10/11/22 Amoxicillin (Amoxicillin) 500 Mg Capsule, 500 MG PO TID for 10 Days, #30 CAP 0 Refills Prov:ALICE GUARDADO MD 10/11/22 Ibuprofen (Ibuprofen) 600 Mg Tablet, 600 MG PO Q6H PRN for PAIN, #30 TAB Prov:RAHUL JON [facility] 09/12/22 Ondansetron (Ondansetron Odt) 4 Mg Tab.rapdis, 4 MG PO Q6HPRN PRN for NAUSEA/VOMITING, #20 TAB Prov:RAHUL JON [facility] 09/12/22 Cefdinir (Cefdinir) 300 Mg Capsule, 300 MG PO BID for 10 Days, #20 CAP Prov:RAHUL JON [facility] 09/12/22 Naproxen (Naproxen) 500 Mg Tablet, 500 MG PO BID PRN for PAIN, #15 TAB Prov:JACOB SUE [facility] 04/18/22 Polyethylene Glycol 3350 (Miralax) 17 Gm Powd.pack, 17 GM PO DAILY, #1 CANISTER Prov:JACOB SUE [facility] 04/18/22 Cephalexin Monohydrate (Keflex) 500 Mg Cap, 500 MG PO QID for 7 Days, #28 CAP Prov:JACOB SUE [facility] 04/18/22 Pramipexole Di-HCl (Mirapex) 0.5 Mg Tablet, 0.5 MG PO BID, #60 TAB Prov:ALICE GUARDADO MD 02/12/22 Cephalexin Monohydrate (Keflex) 500 Mg Cap, 500 MG PO TID for 7 Days, #21 CAP Prov:TERE JOSHI MD 01/16/22 Clonidine HCl (Clonidine HCl) 0.1 Mg Tablet, 0.1 MG PO Q6HPRN PRN for WITHDRAWAL, #20 TAB Prov:NOELLE DARLING Jr. [facility] 07/07/21 Ondansetron HCl (Zofran) 2 Mg/Ml Inj, 4 MG PO Q6HPRN PRN for NAUSEA/VOMITING, #20 ML Prov:NOELLE DARLING Jr. [facility] 07/07/21 Reported Medications Hydrocodone/Acetaminophen (Hydrocodon-Acetaminophn 10-325) 1 Each Tablet, 1 EACH PO [id number] PRN for PAIN LEVEL 6 TO 10, TAB 01/11/16 [Albuterol] No Conflict Check, 2 INHALER IH AD PRN for ASTHMA 01/07/16 Tramadol Hcl (Tramadol HCl) 50 Mg Tablet, 50 MG PO AD PRN for PAIN, TAB 01/07/16 Past Medical History Past Medical History: Asthma, Other Additional Past Medical Hx: opioid abuse recovery, restless leg syndrome, CHRONIC BACK PAIN Surgical History: Hysterectomy, Other, None Surgical History Other: BREAST BIOPSY, TUBALIGATION Family History: CAD, DM, HTN Social History: Negative, Lives with family, Other History: Not Applicable RN Note Reviewed/Agreed w/PFSH: Yes Review of System Dictation CONSTITUTIONAL: NEGATIVE EXCEPT FOR HPI HEAD/FACE: NEGATIVE EXCEPT FOR HPI EENT: NEGATIVE EXCEPT FOR HPI CLEAR RUNNY NOSE RESPIRATORY: NEGATIVE EXCEPT FOR HPI COUGH CONGESTION WITH MILD SOB GASTROINTESTINAL/ABDOMINAL: NEGATIVE EXCEPT FOR HPI GENITOURINARY: NEGATIVE EXCEPT FOR HPI MUSCULOSKELETAL: NEGATIVE EXCEPT FOR HPI INTEGUMENTARY: NEGATIVE EXCEPT FOR HPI NEUROLOGICAL/PSYCH: NEGATIVE EXCEPT FOR HPI HEMATOLOGIC/LYMPHATIC: NEGATIVE EXCEPT FOR HPI ALL SYSTEMS NEGATIVE, EXCEPT NOTED ABOVE. 13 POINT REVIEW OF SYSTEMS ASSESSED AND ALL NEGATIVE EXCEPT FOR ABOVE. Initial Vital Sign VS Vital Signs Date Time Temp Pulse Resp B/P (MAP) Pulse Ox O2 Delivery O2 Flow Rate FiO2 02/01/24 14:58 75 18 02/01/24 15:49 98.2 122/ 98 Room Air* 0 21 Physical Exam Dictation VITAL SIGNS REVIEWED GENERAL APPEARANCE: ALERT, ORIENTED X 3, MILD ACUTE DISTRESS, WELL DEVELOPED, NOURISHED. HEAD AND FACE: NON-TRAUMATIC. EYES: PERRL, PINK CONJUNCTIVAS, EYELID NO TRAUMA, ANTERIOR CHAMBER WITH ARCUS SENILIS. EARS: PINNAS INTACT AND NO SIGNS OF TRAUMA OR ERYTHEMA EAR CANALS CLEAR AND NO DISCHARGE TM NO ERYTHEMA NOSE: CLEAR DISCHARGE, NO BLEEDING. OROPHARYNX: MOUTH NORMAL, TONGUE PINK, PHARYNX CLEAR,NO ERYTHEMA, TONSILS NO EXUDATES, NO ABSCESSES NOTED, MUCOUS MEMBRANE MOIST NECK: SUPPLE, NON-TENDER, NO THYROMEGALY, NO MASSES, NO JVD, NO BRUITS BREAST:DEFERRED CHEST:NO TENDERNESS, NO CREPITUS, NO PARADOXICAL MOVEMENT, NO RETRACTIONS LUNGS:CLEAR, WELL-VENTILATED, SYMMETRIC, NO RALES, NO WHEEZING, NO RHONCHI, NO STRIDOR, GOOD BREATH SOUNDS BILATERALLY NO TACHYPNEA NO RETRACTIONS, PERSISTENT DRY COUGH NOTED HEART: REGULAR RATE, REGULAR RHYTHM, NO MURMUR, NO GALLOPS VASCULAR: NO PERIPHERAL EDEMA, ABDOMEN: SOFT, POSITIVE BOWEL SOUNDS, NONDISTENDED, NO GUARDING, NONTENDER, NO REBOUND, NO MASSES NO HEPATOMEGALY, NO SPLENOMEGALY, NO GONZALEZ'S SIGN, NO HERNIAS. RECTAL: DEFERRED GENITAL: DEFERRED NEUROLOGICAL: NORMAL SPEECH, MOTOR FUNCTION INTACT, SENSORY FUNCTION INTACT MUSCULOSKELETAL: NECK NONTENDER, FULL RANGE OF MOTION, BACK NONTENDER, FULL RANGE OF MOTION, EXTREMITIES: NONTENDER, FULL RANGE OF MOTION SKIN: COLOR PINK, DRY, NO TURGOR, NO RASH, NO LACERATIONS, NO ABRASIONS, NO CONTUSIONS. LYMPHATIC: DEFERRED Results (Laboratory/Radiology) Laboratory/Radiology Laboratory Tests Test 02/01/24 13:25 02/01/24 14:40 SARS-CoV-2 Antigen (Rapid) PRESUMPTIVE NEGATIVE Group A Streptococcus Rapid positive (NEGATIVE) *A CHEST X-RAY NEGATIVE Labs Reviewed?: Yes ED Course ED Course Orders Procedure Category Date Status Time Dexamethasone 4mg/Ml PHA 02/01/24 Complete 1ml Vial (Dexametha 13:30 Covid19 (Sars Antigen LAB 02/01/24 Complete Rapid) 13:25 Chest 1vw RAD 02/01/24 Resulted 13:25 Albuterol 0.083% PHA 02/01/24 Complete 2.5mg/3ml (Proventil 13:30 Rapid (Group A Strep) LAB 02/01/24 Complete 13:48 Current Medications Medications (Trade) Dose Ordered Sig/Rayo Route PRN Reason Start Time Stop Time Status Last Admin Dose Admin Albuterol Sulfate (Proventil 0.083% 2.5mg/3ml) 5 mg ONCE ONCE IH 02/01/24 13:30 02/01/24 13:31 DC 02/01/24 14:52 Dexamethasone Sodium Phosphate (dexaMETHasone 4MG/ML 1ML VIAL) 8 mg ONCE ONCE IM 02/01/24 13:30 02/01/24 13:31 DC 02/01/24 13:40 Vital Signs Date Time Temp Pulse Resp B/P (MAP) Pulse Ox O2 Delivery O2 Flow Rate FiO2 02/01/24 15:54 98.2 75 16 122/84 98 02/01/24 15:49 98.2 16 122/ 98 Room Air* 0 21 02/01/24 14:58 75 18 1525, patient saturating 98 99% on room air coughing improved after treatment. Discharged home with Medrol Dosepak/albuterol with the instructions to stop vaping and see her primary care doctor. ONE THOUSAND SIX HUNDRED RECEIVED CALL FROM LAB THE PATIENT IS POSITIVE FOR STREP PHARYNGITIS PATIENT WAS INFORMED AND WE WILL SEND AUGMENTIN TO HER PHARMACY. Medical Decision Making MDM Medical discharge making based on chest x-ray/COVID-19 swab Both negative Discharged home with viral URI with cough Given Medrol Dosepak/Tessalon/albuterol Patient instructed to stop vaping DX & DISP Disposition: Discharge Departure Impression: Primary Impression: Viral URI with cough Additional Impressions: Vapes non-nicotine containing substance, Acute streptococcal tonsillitis Condition: Stable Scripts Amoxicillin/Potassium Clav (Amox Tr-K Clv 875-125 mg Tab) 875 Mg-125 Mg Tablet 1 EACH PO BID for 7 Days, #14 TAB 0 Refills Prov: DOUGLAS MONTIEL NP 02/01/24 Benzonatate (Tessalon Perles) 100 Mg Cap 100 MG PO TID for cough, #30 CAP 0 Refills Prov: DOUGLAS MONTIEL NP 02/01/24 Methylprednisolone (Medrol) 4 Mg Tab.ds.pk 1 TAB PO AD for 6 Days, #21 TAB 0 Refills 6 on day 1 then reduce by one tablet daily until gone Prov: DOUGLAS MONTIEL NP 02/01/24 Albuterol Sulfate (Ventolin Hfa/Proventil Hfa/Proair Hfa) 90 Mcg Puff 2 PUFF IH Q4H for WHEEZING, #1 INHALER 0 Refills Prov: DOUGLAS MONTIEL NP 02/01/24 Additional Instructions: Follow-up with primary care provider in 1 to 2 days. Take medications as directed here in the emergency room. Okay to continue home medications unless otherwise discussed during your visit in the emergency room today. Return to your nearest emergency room if symptoms worsen or if there is no improvement. Call 911 if you need immediate assistance. Take Tylenol or Motrin [id number] as needed and if no contraindications are present. Increase oral hydration. A wound culture or urine culture was ordered here in the emergency room department please follow-up with primary care provider and advise them to get repeat ports from our facility. If you had any Bennie wrap/splints that were applied here, please do not remove them until you see your primary care or specialty. Stop vaping. Use albuterol inhaler every4 hours while awake for the next two days. Take Medrol Dosepak as directed until gone. See your primary care doctor on Sunday for follow up and management Referrals: KENDELL CRUZ MD (PCP) Time of Disposition: 15:26 I have reviewed the case, and I agree with, Diagnosis and Plan DOUGLAS MONTIEL NP Feb 01, 2024 13:30
[2024-02-01] MEDS: dexaMETHasone SOD PHOSPHATE 4 MG/ML 1ML VIAL IM ONE (13:40)
--- NOTE | 2024-02-01 14:07 | HMCIMG ---
CHEST 1VW HISTORY: Shortness of breath and cough COMPARISON: 11/27/2023 FINDINGS: A frontal projection of the chest was obtained. Prominent interstitial markings are seen with possible superimposed infiltrates. The heart is normal in size. No evidence of aortic calcification is seen. IMPRESSION: 1. Prominent interstitial markings are seen with possible superimposed infiltrates.
[2024-02-01] MEDS: ALBUTEROL 0.083% 2.5 MG/3 ML INH IH ONE (14:52)
[2024-02-01 14:58] VITALS: PULSE 75; RESP 18
[2024-02-01] MEDS ORDERED: ALBUHFA IH (15:29)
[2024-02-01] MEDS ORDERED: BENZ-39 PO (15:29)
[2024-02-01 15:49] VITALS: O2SAT 98
[2024-02-01 15:54] VITALS: BP 122/84; PULSE 75; RESP 16; TEMP 98.2
[2024-02-01] MEDS ORDERED: AMOX1TAB16 PO (15:59)
== END 2024-02-01 16:00 | disposition home or self-care (01) ==
LOC: EDH 13:21
DX: J03.00 Acute streptococcal tonsillitis, unspecified (principal); G25.81 Restless legs syndrome; J45.909 Unspecified asthma, uncomplicated; Z20.822 Contact with and (suspected) exposure to COVID-19; Z79.899 Other long term (current) drug therapy; Z88.1 Allergy status to other antibiotic agents; Z88.2 Allergy status to sulfonamides; Z88.5 Allergy status to narcotic agent; Z90.710 Acquired absence of both cervix and uterus
CPT/HCPCS: 99284; 71045; 87426; 87880; 96372; 94640; J1100

== ENCOUNTER 2025-01-23 18:16 | Emergency (ER) | payer OTHER, MEDICARE ==
[~2025-01-23] VITALS: Ht 154.9 cm; Wt 42.6 kg
[~2025-01-23 18:16] MED LIST changes: +ALBUHFA IH; +AMOX1TAB16 PO; +BENZ-39 PO; +IBUP-1492 PO; -IBUP-2070 PO; -NAPR-1023 PO; +NAPR-1194 PO
[2025-01-23 19:08] VITALS: BP 123/78; PULSE 69; RESP 20; TEMP 97.7
--- NOTE | 2025-01-23 19:13 | NUR ---
UA CUP PROVIDED
[2025-01-23 20:17] LABS: IMMATURE GRANULOCYTE ABSOLUTE 0.02 K/uL (0-1); NUCLEATED RED BLOOD CELLS 0.0 % (0.0-0.19); PLATELET COUNT (AUTO) 142 K/uL (130-400); RED BLOOD CELL COUNT(AUTO) 3.73 MIL/uL (4.00-5.50); RED CELL DISTRIBUTION WIDTH 12.7 % (11.0-15.5); WHITE BLOOD COUNT (AUTO) 5.9 K/uL (4.8-10.8)
--- NOTE | 2025-01-23 20:20 | NUR ---
TRIAGE EDIT DUE TO NEW INFORMATION FROM PT
[2025-01-23 20:30] LABS: CREATININE 0.7 mg/dL (0.5-1.0); GLOMERULAR FILTR. RATE CALC 110.0 mL/min (>90); GLUCOSE,RANDOM 82.0 mg/dL (70-105); SODIUM SERUM 137.0 mmol/L (136-145); UREA NITROGEN, BLOOD 13.0 mg/dL (7-18)
[2025-01-23 20:34] LABS: ASPARTATE AMINOTRANSFERASE 23.0 U/L (10-37); TOTAL PROTEIN, SERUM 7.1 g/dL (6.0-8.3)
--- NOTE | 2025-01-23 20:38 | NUR ---
CALLED, NO ANSWER
--- NOTE | 2025-01-23 20:42 | NUR ---
CALLED NO ANSWER
--- NOTE | 2025-01-23 21:01 | NUR ---
CALLED, NO ANSWER. NOT IN LOBBY, RESTROOM OR MAIN ER, DID NOT COMMUNICATE DESIRE TO LEAVE WITH NURSING STAFF.
== END 2025-01-23 21:03 | disposition left against medical advice (07) ==
LOC: EDH 18:16
DX: R10.30 Lower abdominal pain, unspecified (principal); R10.A2 Flank pain, left side; R11.0 Nausea; K59.00 Constipation, unspecified; Z53.21 Procedure and treatment not carried out due to patient leaving prior to being seen by health care provider
CPT/HCPCS: 36415; 80053; 83690; 84703; 85025; 99281; 99283

== ENCOUNTER 2025-02-23 11:16 | Emergency (ER) | payer OTHER, MEDICARE ==
[~2025-02-23] VITALS: Ht 154.9 cm; Wt 42.6 kg
[2025-02-23 11:19] VITALS: BP 139/69; PULSE 93; RESP 20; TEMP 98.3
--- NOTE | 2025-02-23 11:32 | ERN ---
General Chief Complaint: Cough Stated Complaint: COUGH, CONGESTION Time Seen by MD: 11:20 Source: patient History of Present Illness Initial Comments Patient is a 44-year-old female who came to the ER with complaint of cough and fever for the past 2-3 days. As per the patient, she has not been taking her fever at home but could feel herself burning up. Timing/Duration: other Associated Symptoms: cough Allergies: Coded Allergies: acetaminophen (Unverified Allergy, Unknown, 12/27/19) codeine (Unverified Allergy, Unknown, 12/27/19) sulfamethoxazole (Verified Allergy, Unknown, 01/07/16) trimethoprim (Verified Allergy, Unknown, 01/07/16) vancomycin (Verified Allergy, Unknown, 01/07/16) Home Meds Active Scripts Amoxicillin/Potassium Clav (Amox Tr-K Clv 875-125 mg Tab) 875 Mg-125 Mg Tablet, 1 EACH PO BID for 7 Days, #14 TAB 0 Refills Prov:DOUGLAS MONTIEL EMERGENCY MEDICAL SERVICES COORDINATOR 02/01/24 Benzonatate (Tessalon Perles) 100 Mg Cap, 100 MG PO TID for cough, #30 CAP 0 Refills Prov:DOUGLAS MONTIEL EMERGENCY MEDICAL SERVICES COORDINATOR 02/01/24 Methylprednisolone (Medrol) 4 Mg Tab.ds.pk, 1 TAB PO AD for 6 Days, #21 TAB 0 Refills 6 on day 1 then reduce by one tablet daily until gone Prov:DOUGLAS MONTIEL EMERGENCY MEDICAL SERVICES COORDINATOR 02/01/24 Albuterol Sulfate (Ventolin Hfa/Proventil Hfa/Proair Hfa) 90 Mcg Puff, 2 PUFF IH Q4H for WHEEZING, #1 INHALER 0 Refills Prov:DOUGLAS MONTIEL EMERGENCY MEDICAL SERVICES COORDINATOR 02/01/24 Ibuprofen (Ibuprofen) 600 Mg Tablet, 600 MG PO Q6H PRN for PAIN, #30 TAB Prov:DOUGLAS MONTIEL EMERGENCY MEDICAL SERVICES COORDINATOR 06/15/23 Omeprazole (Omeprazole) 40 Mg Capsule.dr, 40 MG PO DAILY, #30 CAP Prov:DOUGLAS MONTIEL EMERGENCY MEDICAL SERVICES COORDINATOR 04/08/23 Ibuprofen (Ibuprofen 800 mg Tab) 800 Mg Tab, 800 MG PO Q6H PRN for PAIN, #30 TAB Prov:DOUGLAS MONTIEL EMERGENCY MEDICAL SERVICES COORDINATOR 04/08/23 Methylprednisolone (Medrol) 4 Mg Tab.ds.pk, 4 MG PO AD, #1 UNIT Prov:DOUGLAS MONTIEL Massimo EMERGENCY MEDICAL SERVICES COORDINATOR 04/08/23 Ondansetron HCl (Ondansetron HCl) 4 Mg Tablet, 4 MG PO TIDP PRN for VOMITING, #20 TAB Prov:ALICE GUARDADO MD 10/11/22 Amoxicillin (Amoxicillin) 500 Mg Capsule, 500 MG PO TID for 10 Days, #30 CAP 0 Refills Prov:ALICE GUARDADO MD 10/11/22 Ibuprofen (Ibuprofen) 600 Mg Tablet, 600 MG PO Q6H PRN for PAIN, #30 TAB Prov:RAHUL JON EMERGENCY MEDICAL SERVICES COORDINATOR 09/12/22 Ondansetron (Ondansetron Odt) 4 Mg Tab.rapdis, 4 MG PO Q6HPRN PRN for NAUSEA/VOMITING, #20 TAB Prov:RAHUL JON EMERGENCY MEDICAL SERVICES COORDINATOR 09/12/22 Cefdinir (Cefdinir) 300 Mg Capsule, 300 MG PO BID for 10 Days, #20 CAP Prov:RAHUL JON [facility] 09/12/22 Naproxen (Naproxen) 500 Mg Tablet, 500 MG PO BID PRN for PAIN, #15 TAB Prov:JACOB SUE [facility] 04/18/22 Polyethylene Glycol 3350 (Miralax) 17 Gm Powd.pack, 17 GM PO DAILY, #1 CANISTER Prov:JACOB SUE [facility] 04/18/22 Cephalexin Monohydrate (Keflex) 500 Mg Cap, 500 MG PO QID for 7 Days, #28 CAP Prov:JACOB SUE [facility] 04/18/22 Pramipexole Di-HCl (Mirapex) 0.5 Mg Tablet, 0.5 MG PO BID, #60 TAB Prov:ALICE GUARDADO MD 02/12/22 Cephalexin Monohydrate (Keflex) 500 Mg Cap, 500 MG PO TID for 7 Days, #21 CAP Prov:TERE JOSHI MD 01/16/22 Clonidine HCl (Clonidine HCl) 0.1 Mg Tablet, 0.1 MG PO Q6HPRN PRN for WITHDRAWAL, #20 TAB Prov:NOELLE DARLING Jr. EMERGENCY MEDICAL SERVICES COORDINATOR 07/07/21 Ondansetron HCl (Zofran) 2 Mg/Ml Inj, 4 MG PO Q6HPRN PRN for NAUSEA/VOMITING, #20 ML Prov:NOELLE DARLING Jr. EMERGENCY MEDICAL SERVICES COORDINATOR 07/07/21 Reported Medications Hydrocodone/Acetaminophen (Hydrocodon-Acetaminophn 10-325) 1 Each Tablet, 1 EACH PO [id number] PRN for PAIN LEVEL 6 TO 10, TAB 01/11/16 [Albuterol] No Conflict Check, 2 INHALER IH AD PRN for ASTHMA 01/07/16 Tramadol Hcl (Tramadol HCl) 50 Mg Tablet, 50 MG PO AD PRN for PAIN, TAB 01/07/16 Past Medical History Past Medical History: Asthma, Other Medical History Other: opioid abuse recovery, restless leg syndrome, CHRONIC BACK PAIN Past Surgical History: Hysterectomy, Other, None, BTL Surgical History Other: BREAST BIOPSY Family History Family History: CAD, DM, HTN Social History Social History: Negative, Lives with family, Other Female( History) History: Not Applicable Constitutional: (+) fever EENTM: (-) eye pain, (-) blurred vision, (-) tearing, (-) double vision, (-) ear pain, (-) ear discharge, (-) nose pain, (-) nose congestion, (-) throat pain, (-) Throat swelling, (-) mouth pain, (-) tooth pain, (-) mouth swelling, (-) other documentation Respiratory: (+) cough Cardiovascular: (-) chest pain, (-) edema, (-) palpitations, (-) syncope, (-) dyspnea on exertion, (-) other documentation Gastrointestinal/Abdominal: (-) nausea, (-) vomiting, (-) diarrhea, (-) abdominal pain, (-) abdominal distention, (-) constipation, (-) rectal bleeding, (-) dark stool/melena, (-) other documentation Genitourinary: (-) vaginal discharge, (-) vaginal bleeding, (-) dysuria, (-) frequency, (-) hematuria, (-) pain, (-) other documentation Skin: (-) laceration, (-) contusion, (-) abrasion, (-) abscess, (-) rash, (-) change in color, (-) change in hair, (-) change in nails, (-) diaphoresis, (-) dryness, (-) other documentation Neuro: (-) altered mental status, (-) headache, (-) syncope, (-) paralysis, (-) numbness, (-) seizure, (-) pre-existing deficit, (-) tremors, (-) weakness, (-) dizziness, (-) slurred speech, (-) vertigo, (-) other documentation Physical Exam General Appearance: (-) no apparent distress, (-) apparent distress, (-) mild distress, (-) moderate distress, (-) severe distress, (-) thin, (-) obese, (-) combative, (-) cachetic, (-) anxious, (-) other documentation Orientation: (-) alert, (-) oriented x 3, (-) disoriented, (-) other documentation Ear, Nose, Throat: (-) hearing grossly normal, (-) normal ENT inspection, (-) moist mucous membraine, (-) normal pharynx, (-) normal TM, (-) abnormal TM, (-) pharyngeal erythema, (-) sinus drainange, (-) sinus pain, (-) tonsillar exudate, (-) tonsillar swelling, (-) nasal drip, (-) nasal congestion, (-) hearing decreased, (-) dry mucous membraine, (-) other documentation Neck: (-) normal inspection, (-) supple, (-) full range of motion, (-) no JVD, (-) non-tender, (-) no bruit, (-) tender, (-) limited range of motion, (-) tender lateral, (-) tender midline, (-) thyromegaly, (-) lymphadenopathy, (-) masses, (-) carotid bruit, (-) other documentaion Respiratory: (-) chest non-tender, (-) lungs clear, (-) well ventilated, (-) decreased breath sounds, (-) retractions, (-) abnormal breath sound, (-) crackles, (-) plerual rub, (-) rales, (-) rhonchi, (-) stridor, (-) wheezing, (- ) other documentation Heart: (-) regular, (-) no gallop, (-) murmur, (-) irregular, (-) bradycardia, (-) tachycardia, (-) systolic murmur, (-) diastolic murmur, (-) extra beats, (-) friction rub, (-) gallop/S3, (-) gallop/S4, (-) other documentation Vascular: (-) no edema, (-) normal peripheral pulse, (-) no JVD, (-) abdominal aorta, (-) abnormal peripheral pulse, (-) carotid bruit, (-) edema, (-) JVD, (-) varicose vein, (-) other documentation Gastrointestinal: (-) soft, (-) non-tender, (-) no organomegaly, (-) bowel sound present, (-) distended, (-) tender, (-) abnormal bowel sounds, (-) bowel sound absent, (-) rebound, (-) segovia's sign, (-) guarding, (-) hernia, (-) mass, (-) pulsatile mass, (-) CVA tenderness, (-) hepatomegaly, (-) spleenomegaly, (-) other documentation, (-) McBerney's, (-) other documentation Extremities: (-) normal range of motion, (-) non-tender, (-) normal inspection, (-) no pedal edema, (-) no calf tenderness, (-) normal capillary refill, (-) pelvis stable, (-) calf tenderness, (-) inflammation, (-) pedal edema, (-) slow capillary refill, (-) swelling, (-) other Results Laboratory and Microbiology Lab and Micro Result Laboratory Tests Test 02/23/25 12:30 Influenza Type A Antigen Negative For Type A Influenza Type B Antigen Negative For Type B SARS-CoV-2 Antigen (Rapid) PRESUMPTIVE NEGATIVE Group A Streptococcus Rapid negative (NEGATIVE) MDM MDM: Differential diagnosis: Rationale: Tests considered and ordered secondary to shared decision making include: Previous outside records reviewed: Old ER visits. Risk of complication and/or morbidity or mortality of patient management: None Medications-Per medication reconciliation Need for hospitalization: Patient does not meet criteria for hospitalization. Need for emergency major/minor surgery: No There are no social concerns with this patient. Prescription drug management Prescriptions will include symptomatic care Patient's prior external medical records from other ER visits were reviewed by me as indicated. Prior testing and results from previous visits were reviewed. Prior tests were taken into account with medical decision making and resource utilization, independent historian/historians were used to obtain complete medical history. I independently interpreted the test that were performed, results were reviewed by me and considered findings on radiology if ordered. Medical management and examination interpretation discussions were had by me with other qualified healthcare professionals as indicated for the patient's care. ED Course Orders Procedure Category Date Status Time Covid19 (Sars Antigen LAB 02/23/25 Complete Rapid) 11:22 Influenza Type A & B, LAB 02/23/25 Complete Rapid 11:22 Rapid (Group A Strep) LAB 02/23/25 Complete 11:22 Vital Signs Date Time Temp Pulse Resp B/P (MAP) Pulse Ox O2 Delivery O2 Flow Rate FiO2 02/23/25 11:19 98.2 93 20 139/69 96 Room Air 0 DX & DISP Disposition: Discharge Departure Impression: Primary Impression: Viral URI with cough Condition: Stable Scripts Azithromycin (Azithromycin) 250 Mg Tablet 1 TAB PO AD for 5 Days, #6 TAB 0 Refills 2 the first day followed by 1 for days 2-5 Prov: SANJEEV MIRELES MD 02/23/25 Referrals: KENDELL CRUZ MD (PCP) KOSTA MCMAHON MD Feb 23, 2025 11:32 SANJEEV MIRELES MD Feb 23, 2025 14:14
[2025-02-23 12:58] LABS: RAPID GROUP A STREP negative (NEGATIVE)
[2025-02-23 13:10] LABS: INFLUENZA TYPE A Negative For Type A (NEGATIVE); INFLUENZA TYPE B Negative For Type B (NEGATIVE)
[2025-02-23 13:11] LABS: COVID19 (SARS ANTIGEN RAPID) PRESUMPTIVE NEGATIVE (NEGATIVE)
[2025-02-23] MEDS ORDERED: AZIT250T9 PO (14:13)
[2025-02-23] MEDS ORDERED: OSEL75 PO (14:32)
== END 2025-02-23 14:38 | disposition home or self-care (01) ==
LOC: EDH 11:16
DX: R06.9 Unspecified abnormalities of breathing (principal); B97.89 Other viral agents as the cause of diseases classified elsewhere; J45.909 Unspecified asthma, uncomplicated; Z79.899 Other long term (current) drug therapy; Z83.3 Family history of diabetes mellitus; Z88.1 Allergy status to other antibiotic agents; Z88.2 Allergy status to sulfonamides; Z88.5 Allergy status to narcotic agent; Z90.710 Acquired absence of both cervix and uterus; Z20.822 Contact with and (suspected) exposure to COVID-19
CPT/HCPCS: 87426; 87804; 87880; 99283